=== PATIENT | male | born 2000 | race African-American/Black ===

== ENCOUNTER 2019-11-26 15:17 | Emergency (ER) | payer BC, OTHER ==
[~2019-11-26] VITALS: Ht 170.2 cm; Wt 59.0 kg
[2019-11-26] MEDS ORDERED: ONDANSETRON 4MG ODT PO STA (17:16)
[2019-11-26] MEDS ORDERED: KETOROLAC 30MG/ML VIAL IV STA (17:16)
[2019-11-26] MEDS ORDERED: MAGNESIUM/ALUMINUM HYDROXIDE/SIMETHICONE 30ML UDC PO ONE (17:30)
[2019-11-26] MEDS ORDERED: VISCOUS LIDOCAINE 2% 15 ML UDC PO ONE (17:30)
[2019-11-26 17:31] LABS: BASOPHILS % 1.3 % (0.0-2.0); EOSINOPHILS % 0.3 % (0.0-5.0); HEMATOCRIT. 43.4 % (42.0-52.0); HEMOGLOBIN. 14.4 g/dL (14.0-18.0); LYMPHOCYTES % 7.9 % (20.0-50.0); MEAN CORPUSCULAR HEMOGLOBIN 27.7 pg (28.0-32.0); MEAN CORPUSCULAR VOLUME 83.5 fL (80.0-94.0); MEAN PLATELET VOLUME 8.7 fl (7.4-10.4); MONOCYTES % 6.4 % (2.0-8.0); NEUTROPHILS % 84.1 % (40.0-76.0); PLATELET 163 x1000/uL (130-400); RED CELL DISTRIBUTION WIDTH 14.2 % (11.6-14.6)
[2019-11-26 17:37] LABS: CHLORIDE 106 mEq/L (98-107)
[2019-11-26] MEDS ORDERED: ALPRAZOLAM 0.25 MG TABLET PO ONE (18:45)
[2019-11-26 19:27] VITALS: BP 125/73
== END 2019-11-26 19:29 | disposition home or self-care (01) ==
LOC: ER 15:17
DX: R07.89 Other chest pain (principal); R06.02 Shortness of breath
CPT/HCPCS: 36415; 71045; 80053; 83690; 83880; 84484; 85025; 96374; 99285; J1885; Q0162